=== PATIENT | female | born 1995 | race Two or more races ===

== ENCOUNTER 2021-11-15 15:22 | Emergency (ER) | payer MEDICAID, OTHER ==
[~2021-11-15] VITALS: Ht 149.9 cm; Wt 81.6 kg
[2021-11-15] MEDS ORDERED: ACETAMINOPHEN 325 MG TABLET PO ONE (16:30)
[2021-11-15] MEDS ORDERED: IBUP-1953 PO (16:56)
[2021-11-15 17:09] VITALS: BP 128/64
== END 2021-11-15 17:09 | disposition home or self-care (01) ==
LOC: ER 15:26
DX: S93.401A Sprain of unspecified ligament of right ankle, initial encounter (principal); Z79.1 Long term (current) use of non-steroidal anti-inflammatories (NSAID); W10.9XXA Fall (on) (from) unspecified stairs and steps, initial encounter; Y93.89 Activity, other specified; Y92.89 Other specified places as the place of occurrence of the external cause; Y99.8 Other external cause status
CPT/HCPCS: 73610-TC